=== PATIENT | male | born 1985 | race Caucasian/White ===

== ENCOUNTER 2016-10-17 09:24 | Emergency (ER) | payer OTHER ==
[2016-10-17 10:38] LABS: BILIRUBIN NEGATIVE (NEGATIVE); BLOOD NEGATIVE Ery/uL (NEGATIVE); CLARITY CLEAR (CLEAR); COLOR COLORLESS (YELLOW); GLUCOSE (U) NORMAL (NORMAL); KETONE (U) NEGATIVE (NEGATIVE); LEUKOCYTES NEGATIVE Leu/uL (NEGATIVE); NITRITE NEGATIVE (NEGATIVE); PROTEIN NEGATIVE (NEGATIVE); SPECIFIC GRAVITY <=1.005 (1.001-1.030); UROBILINOGEN 0.2 mg/dL (0.2-1.0); pH 6.5 (5.0-9.0)
[2016-10-17 10:51] LABS: BASOPHIL 0 % (0-2); EOSINOPHIL 0.6 % (0-5); HCT 39.2 % (42.0-52.0); HGB 13.9 g/dl (13.2-18.0); LYMPHOCYTE 10.2 % (15-48); MCH 32.4 pg (25.0-31.0); MCHC 35.5 g/dL (32.0-36.0); MCV 91.4 fL (78.0-100.0); MPV 9.4 fL (6.0-9.5); NEUTROPHIL 86.2 % (41-80); PLT 278 K/uL (150-400); RBC 4.29 M/uL (4.70-6.00); RDW 13.2 % (11.5-14.0); WBC 13.8 K/uL (4.0-10.5)
[2016-10-17 11:18] LABS: CREATININE 0.7 mg/dL (0.7-1.2); POTASSIUM 4.1 mmol/L (3.5-5.1)
== END 2016-10-17 13:38 | disposition home or self-care (01) ==
LOC: FER 09:24
PROVIDERS: Internal Medicine
DX: L02.214 Cutaneous abscess of groin (principal)
CPT/HCPCS: 36415; 72193; 80048; 81003; 85025; Q9967

== ENCOUNTER 2021-01-27 20:23 | Emergency (ER) | payer OTHER ==
[2021-01-27] MEDS ORDERED: PREDNISONE 20MG20 MG PO (21:49)
[2021-01-27] MEDS ORDERED: DICLOFENAC SODI75 MG PO (21:49)
[2021-01-27] MEDS ORDERED: BACTRIM DS TAB1 EACH PO (21:49)
== END 2021-01-27 22:00 | disposition home or self-care (01) ==
LOC: FER 20:23
DX: M25.532 Pain in left wrist (principal); M79.642 Pain in left hand; Z88.0 Allergy status to penicillin
CPT/HCPCS: 73130; 96372; J1040; J1885

== ENCOUNTER 2021-12-26 20:52 | Emergency (ER) | payer OTHER ==
[~2021-12-26 20:52] MED LIST: BACTRIM DS TAB1 EACH PO; DICLOFENAC SODI75 MG PO; NAPROXEN500 MG PO; PREDNISONE 20MG20 MG PO
[2021-12-26] MEDS ORDERED: CEPHALEXIN500 MG PO (22:55)
== END 2021-12-26 23:13 | disposition home or self-care (01) ==
LOC: FER 20:52
DX: M25.421 Effusion, right elbow (principal); L03.113 Cellulitis of right upper limb; Z88.0 Allergy status to penicillin; Z28.310 Unvaccinated for COVID-19
CPT/HCPCS: 99283